=== PATIENT | female | born 1990 | race Caucasian/White ===

== ENCOUNTER 2020-08-02 16:21 | Emergency (ER) | payer OTHER ==
[2020-08-02 17:12] LABS: BILIRUBIN 1+ mg/dL (NEGATIVE); BLOOD 3+ Ery/uL (NEGATIVE); CLARITY HAZY (CLEAR); COLOR RED (YELLOW); GLUCOSE (U) NORMAL (NORMAL); LEUKOCYTES 1+ Leu/uL (NEGATIVE); NITRITE NEGATIVE (NEGATIVE); PROTEIN 1+ mg/dL (NEGATIVE); SPECIFIC GRAVITY 1.025 (1.001-1.030); pH 6.5 (5.0-9.0)
[2020-08-02 17:18] LABS: BACTERIA TRACE; URINARY RBC TNTC
[2020-08-02 17:19] LABS: AMPHETAMINES NEGATIVE (NEGATIVE); BARBITURATES NEGATIVE (NEGATIVE); ECSTASY (MDMA) NEGATIVE (NEGATIVE); MARIJUANA (THC) NEGATIVE (NEGATIVE); METHADONE NEGATIVE (NEGATIVE); OPIATES NEGATIVE (NEGATIVE); OXYCODONE NEGATIVE (NEGATIVE)
[2020-08-02 17:26] LABS: BASOPHIL 0.5 % (0-2); EOSINOPHIL 4.6 % (0-5); HCT 41.4 % (37.0-47.0); HGB 13.9 g/dl (12.5-16.0); LYMPHOCYTE 20.4 % (15-48); MCH 28.3 pg (25.0-31.0); MCHC 33.6 g/dL (32.0-36.0); MCV 84.1 fL (78.0-100.0); MONOCYTE 8.2 % (0-12); MPV 10.5 fL (6.0-9.5); NEUTROPHIL 65.8 % (41-80); NRBC 0; PLT 247 K/uL (150-400); RBC 4.92 M/uL (4.20-5.40); RDW 13.3 % (11.5-14.0); WBC 5.9 K/uL (4.0-10.5)
[2020-08-02] MEDS ORDERED: BACTRIM DS TAB1 EACH PO (17:42)
[2020-08-02] MEDS ORDERED: MOTRIN600 MG PO (17:42)
[2020-08-02 17:48] LABS: ALBUMIN 2.7 g/dL (3.4-5.0); BILIRUBIN - TOTAL 0.2 mg/dL (0.2-1.0); BUN/CREAT RATIO (CALC) 15.1 RATIO; CREATININE 0.73 mg/dL (0.51-0.95); GLOBULIN (CALCULATION) 4.2 g/dL; POTASSIUM 3.8 mmol/L (3.5-5.1); TOTAL PROTEIN 6.9 g/dL (6.4-8.2)
[2020-08-02 17:52] LABS: LACTIC ACID 1.3 mmol/L (0.4-1.9)
== END 2020-08-02 17:55 | disposition home or self-care (01) ==
LOC: FER 16:21
PROVIDERS: Physician Assistant
DX: L03.113 Cellulitis of right upper limb (principal); F14.11 Cocaine abuse, in remission; F17.210 Nicotine dependence, cigarettes, uncomplicated; Z88.8 Allergy status to other drugs, medicaments and biological substances
CPT/HCPCS: 36415; 73060; 80053; 80305; 81001; 83605; 85025; J1885

== ENCOUNTER 2021-10-31 02:12 | Emergency (ER) | payer OTHER ==
[~2021-10-31 02:12] MED LIST: BACTRIM DS TAB1 EACH PO; MOTRIN600 MG PO
[2021-10-31] MEDS ORDERED: PIMECROLIMUS TOP (02:56)
[2021-10-31] MEDS ORDERED: AMOXICILLIN500 MG PO (02:56)
[2021-10-31] MEDS ORDERED: DIFLUCAN 100MG100 MG PO (02:56)
== END 2021-10-31 03:12 | disposition home or self-care (01) ==
LOC: FER 02:12
DX: H66.93 Otitis media, unspecified, bilateral (principal); L30.9 Dermatitis, unspecified; F17.210 Nicotine dependence, cigarettes, uncomplicated
CPT/HCPCS: 99282